=== PATIENT | female | born 2005 | race Caucasian/White ===

== ENCOUNTER 2025-02-11 08:18 | Emergency (ER) | payer OTHER ==
[2025-02-11] MEDS ORDERED: Ibuprofen 800 MG TAB ONE (08:50)
== END 2025-02-11 09:30 | disposition home or self-care (01) ==
LOC: NAV ERS 08:18
DX: S40.011A Contusion of right shoulder, initial encounter (principal); S50.312A Abrasion of left elbow, initial encounter; V80.010A Animal-rider injured by fall from or being thrown from horse in noncollision accident, initial encounter; Y99.0 Civilian activity done for income or pay
CPT/HCPCS: 99283